=== PATIENT | male | born 1990 | race Caucasian/White ===

== ENCOUNTER → 2022-10-27 14:08 | Outpatient (REF) | payer OTHER, SELFPAY | LOC: HO.SL 14:08 | PROVIDERS: Visit Provider Nurse Practitioner Family | DX: R06.83 Snoring (principal); G47.19 Other hypersomnia | CPT/HCPCS: 95806 ==

== ENCOUNTER → 2022-12-15 20:30 | Outpatient (REF) | payer OTHER, SELFPAY | LOC: HO.SL 20:30 | PROVIDERS: Visit Provider Nurse Practitioner Family | DX: G47.33 Obstructive sleep apnea (adult) (pediatric) (principal) | CPT/HCPCS: 95811 ==

== ENCOUNTER 2023-03-15 09:09 | Outpatient (REF) | payer OTHER, SELFPAY ==
[2023-03-15 10:40] LABS: MANUAL DIFF FLAG NO
[2023-03-15 11:01] LABS: Basophils Absolute Auto 0.1 X10*3/uL (0.0-0.2); Basophils Percent Auto 1.1 % (0-2); Eosinophils Absolute Auto 0.4 X10*3/uL (0.0-0.4); Eosinophils Percent Auto 4.1 % (0-4); Hematocrit 45.8 % (42.0-52.0); Hemoglobin 15.7 g/dl (14.0-18.0); Imm Gran Abs Auto 0.01 X10*3/uL (0.00-0.03); Imm Gran Pct Auto 0.1 % (0.0-0.4); Lymphocytes Absolute Auto 3.6 X10*3/uL (1.2-4.9); Lymphocytes Percent Auto 42.5 % (20-40); Mean Corpuscular HGB Conc 34.3 g/dl (31.0-36.0); Mean Corpuscular Hemoglobin 29.5 pg (27.0-33.0); Mean Corpuscular Volume 86.1 fL (80.0-98.0); Mean Platelet Volume 10.2 fL (9.4-12.4); Monocytes Absolute Auto 0.6 X10*3/uL (0.1-1.2); Monocytes Percent Auto 6.7 % (2-11); Neutrophils Absolute Auto 3.9 x10*3/uL (2.0-8.3); Neutrophils Percent Auto 45.5 % (45-73); Platelet Count 268 X10*3/uL (160-400); Red Blood Count 5.32 X10*6/uL (4.60-5.80); Red Cell Distribution Width 12.4 % (11.0-16.0); White Blood Count 8.5 X10*3/uL (4.8-10.8)
[2023-03-15 11:32] LABS: Alanine Aminotransferase 59 U/L (0-40); Albumin Level 4.6 g/dL (3.5-5.0); Alkaline Phosphatase 67 U/L (39-117); Anion Gap 13 (12-20); Aspartate Amino Transferase 28 U/L (5-37); Bilirubin Total 0.3 mg/dL (0.0-1.0); Blood Urea Nitrogen 11 mg/dL (9-16); C Reactive Protein 0.18 mg/dL (< or = 0.50); Calcium 9.5 mg/dL (8.4-10.2); Carbon Dioxide 25 mmol/L (22-29); Chloride 106 mmol/L (96-108); Estimated Glomerular Filt Rate > 60; Glucose Random 106 mg/dL (60-115); Sodium 140 mmol/L (135-145); Total Protein 8.2 g/dL (6.5-8.0)
[2023-03-15 11:47] LABS: HBS Num1 0.04 mIU/mL (0-7.99); HBc Num1 0.12 S/CO (0.00-0.79); HBsAGNum1 0.48 S/CO (0.00-0.99); HIV AB/AG Nonreactive (Nonreactive); HIV Num 1 0.06 S/CO (0.00-0.99); Hepatitis A Antibody IgM 0.31 Index (0-0.79); Hepatitis B Core Antibody Nonreactive (Nonreactive); Hepatitis B Surface Antigen Negative (Negative); ~HepC Num1 0.05 S/CO (0.00-0.79); ~Hepatitis A Antibody IgM Nonreactive (Nonreactive); ~Hepatitis B Surface Antibody NONREACTIVE (Nonreactive); ~Hepatitis C Antibody Nonreactive (Nonreactive)
[2023-03-15 11:49] LABS: TSH reflex Free T4 1.86 uIU/mL (0.32-4.0)
[2023-03-15 14:56] LABS: Appearance Urine Clear; Color Urine Yellow; Glucose Urine UA Negative (Negative); Leukocyte Esterase Urine Negative (Negative); Nitrite Urine Negative (Negative); Specific Gravity - Urine >= 1.030 (1.005-1.025); Urine Blood Negative (Negative); Urine Ketones Negative (Negative); Urine Protein Negative (Neg-Trace)
[2023-03-16 12:58] LABS: Alpha Fetoprotein 2.3 ng/mL (<6.1)
[2023-03-16 13:33] LABS: Transglutaminase Ab IgG <1.0 U/mL; Transglutaminase IgA <1.0 U/mL
[2023-03-20 10:49] LABS: Smooth Muscle Antibody <20 U (<20)
[2023-03-21 13:34] LABS: Mitochondrial Antibodies NEGATIVE (NEGATIVE)
[2023-03-22 12:13] LABS: Anti Nuclear Antibody Screen NEGATIVE (NEGATIVE)
== END 2023-03-15 09:10 | disposition home or self-care (01) ==
LOC: HO.LAB 09:09
PROVIDERS: PCP Internal Medicine; Visit Provider Nurse Practitioner
DX: Z11.4 Encounter for screening for human immunodeficiency virus [HIV] (principal); R10.9 Unspecified abdominal pain; R19.7 Diarrhea, unspecified; Z91.09 Other allergy status, other than to drugs and biological substances; R21 Rash and other nonspecific skin eruption; R79.89 Other specified abnormal findings of blood chemistry; Z80.0 Family history of malignant neoplasm of digestive organs; R74.01 Elevation of levels of liver transaminase levels
CPT/HCPCS: 36415; 80053; 81003; 82105; 84443; 85025; 86003; 86015; 86038; 86140; 86255; 86256; 86364; 86704; 86706; 86709; 86803; 87340; 87389

== ENCOUNTER 2023-03-15 09:09 | Outpatient (AMB) | payer OTHER, SELFPAY ==
[2023-03-15 09:13] VITALS: BP 134/63; PULSE 92; BMI 38.0
--- NOTE | 2023-03-15 09:13 | A.OFFVIS_ITS ---
Intake Vital Signs 03/15/23 09:13 Height 5 ft 4 in Weight 221 lb 5.506 oz BMI 38.0 BP 134/63 Blood Pressure Location Rt brachial Position Sitting Pulse 92 Intake Visit Reasons: Elevated LFTs Intake Note: Patient presents to in office visit today as a new patient for elevated LFTs. CC: He reports he is out of his work on FMLA due to symptoms he is having. Patient reports extreme RUQ abdominal pain, distention, diarrhea within 10-20 minutes after eating. He also c/o nausea, vomiting. Onset of symptoms 3 months ago. [employer] Leadperson Required: No Allergies No Known Allergies Allergy (Verified 03/15/23 09:17) HPI Elevated LFTs HPI Details 33-year-old male here for initial evalua tion of elevated LFTs. He is referred by [facility]. PMX KHADAR - having trouble getting CPAP Anxiety Asthma Chronic diarrhea Transaminitis LEFT INGUINAL HERNIA * SURGICAL HISTORY Circumcision * ALLERGIES: erythromycin drops * LABS SUPPLIED BY PCP: 08/2021 unremarkable CBC, AST/ALT /59 with a total bili is 0.3 and a normal alk-phos, unremarkable renal panel. CT ABDOMEN AND PELVIS 12/27/2022-ray S radiology LIVER GALLBLADDER AND BILIARY TREE: LIVER IS PROMINENT IN SIZE of overall decreased density with focal fatty sparing at the gallbladder fossa. No focal hepatic lesion or biliary duct dilation is present. The gallbladder is unremarkable with no evidence of radiopaque gallstone gallbladder wall thickening or obvious pericholecystic inflammatory changes ABDOMINAL WALL: Very small fat filled inguinal hernia left GI TRACT: Small hiatal hernia. Well distended and unremarkable stomach. Nonobstructive bowel pattern. Unremarkable terminal ileum and appendix. Proximal to mid transverse colonic wall thickening although under distended. Descending colon is decompressed. IMPRESSION Mild thickening proximal to the mid transverse colon questionable infectious versus inflammatory. No significant pericolonic stranding. Nonspecific mesenteric lymph nodes. Enlarged fatty liver. TODAYS VISIT He says he is here or abd pain on the left side and diarrhea. He has been having 4 mos of right sided abd pain and bloating. He would stretch in the am and it would feel like something popped out of place, it feels like a tight pulled muscle constantly now. It is worse with any contact. Eating does not increase the pain. The worst flairs of pain in 7/10 and at times 10/10 with spasm. At times it feels like there is a whole in side and my intestine is trying to squeeze out. Or like someone is punching me form the inside. He is having post prandial diarrhea. He always used the BR multiple times a day WITH soft to formed stools, but not now. . He has had occasional vomiting, he is unsure what triggers it, it seems to come out of nowhere and at times even wakes him from his sleep. He has a paternal uncle who is gluten in tolerant, his mother had lactose intolerant. His mother had colon polyps. His paternal grandfather of stomach and colon cance.r Mother had polyps in her 40's and grandfather CRC in 50's No known liver disease. He has lost weight since this started a out 20 lbs. He is unsure why, he is stlil eating well. He is out on medical leave may need this extended. Ordering EGD/colonoscopy, small bowel f/t, HIDA, labs. [facility] Medical History (Updated 03/30/23 @ 09:56 by Viki Butt RN) Anxiety Sleep apnea Asthma Back pain Chronic diarrhea Surgical History H/O circumcision Family History Mother Hx of thyroid cancer Father Anxiety Family/Other Diabetes mellitus Family/Other Colon cancer Family/Other Asthma Family/Other COPD (chronic obstructive pulmonary disease) Glaucoma Social History Alcohol intake: current Alcohol intake frequency: holidays/special occasions only Patient Tobacco Use Status: Never used Tobacco Review of Systems Const Denies fatigue, Denies fever(s), Denies night sweats, Denies poor appetite and Denies weight loss ENT Reports Normal hearing present, Denies dental pain, Denies dysphagia, Denies hearing loss, Denies mouth pain, Denies odynophagia, Denies throat swelling, Denies tongue swelling and Reports other (Dentition adequate) Card Reports no additional complaints Resp Reports no additional complaints GI Reports abdominal pain, Denies melena, Denies bloating, Denies hematochezia, Denies constipation, Denies GI cramping, Denies dysphagia, Denies excessive flatus, Denies early satiety, Denies heartburn, Reports diarrhea, Reports nausea, Denies odynophagia, Reports vomiting and Denies hematemesis Skin/Breast Denies pruritus, Denies lesions, Denies rash and Denies jaundice Neuro Reports Normal hearing present and Denies Abnormal speech present Endo Denies fatigue Aller/Immun Denies throat swelling and Denies tongue swelling Physical Exam Vital Signs: Last Vital Signs Pulse 92 03/15/23 09:13 BP 134/63 03/15/23 09:13 BMI result Body Mass Index 38.0 Const General: cooperative, no acute distress, well developed and well groomed Nutritional Appearance: well nourished and obese morbidly obese Orientation/consciousness: oriented to person, oriented to place and oriented to time Limitations: No language barrier HEENT Head: Yes normocephalic and Yes atraumatic Eyes General: appearance normal, both eyes and all related structures Pupils: Equal, round and reactive pupils present Neck Neck: Yes normal visual inspection and Yes no lymphadenopathy Thyroid: Thyroid normal Resp Effort & Inspection: normal respiratory effort and able to speak in complete sentences Auscultation: clear to auscultation bilaterally Cardio Rate: regular rate Rhythm: regular rhythm Heart sounds: Normal, physiologic split S2 sound present Peripheral pulses: radial pulses present and posterior tibial pulses present GI Inspection: No distended, No Abdominal panniculus present and Yes obesity Palpation (GI): Soft to palpation, nontender, no guarding, not rigid and No hepatosplenomegaly present Percussion: Yes normal to percussion Auscultation: normal bowel sounds Rectal Exam - Male: Yes deferred Skin Other: rash on buttock, upper thighs and stomach, discrets erythrma no exudate, scaly. Worse itching at night. General skin exam: turgor normal, skin not dry, no jaundice, No spider nevi and no striae Rashes: no rashes Nails: normal Neuro General: oriented to person, oriented to place and oriented to time Cranial nerves: Yes Equal, round and reactive pupils present and Yes Normal hearing present Speech: No Abnormal speech present Extrem General: Yes normal to inspection, No clubbing, No cyanosis and No edema Psych Appearance: grossly normal and well kempt Mental Status: mental status grossly normal Speech and movement: Normal speech and movement present Affect: normal affect Attitude: cooperative Thought process: Normal thought process present and not confabulating Thought content: Normal thought content present Insight: Limited insight present (Psych) Judgement: Limited judgement present (Psych) Results Reviewed Results Reviewed: LABS SUPPLIED BY PCP: 08/2021 unremarkable CBC, AST/ALT 23/59 with a total bili is 0.3 and a normal alk-phos, unremarkable renal panel. CT ABDOMEN AND PELVIS 12/27/2022-ray S radiology LIVER GALLBLADDER AND BILIARY TREE: LIVER IS PROMINENT IN SIZE of overall decreased density with focal fatty sparing at the gallbladder fossa. No focal hepatic lesion or biliary duct dilation is present. The gallbladder is unremarkable with no evidence of radiopaque gallstone gallbladder wall thickening or obvious pericholecystic inflammatory changes ABDOMINAL WALL: Very small fat filled inguinal hernia left GI TRACT: Small hiatal hernia. Well distended and unremarkable stomach. Nonobstructive bowel pattern. Unremarkable terminal ileum and appendix. Proximal to mid transverse colonic wall thickening although under distended. Descending colon is decompressed. IMPRESSION Mild thickening proximal to the mid transverse colon questionable infectious versus inflammatory. No significant pericolonic stranding. Nonspecific mesenteric lymph nodes. Enlarged fatty liver. Assessment & Plan Assessment & Plan (1) Acute diarrhea: Code(s): R19.7 - Diarrhea, unspecified Plan: He says he is here or abd pain on the left side and diarrhea. He has been having 4 mos of right sided abd pain and bloating. He would stretch in the am and it would feel like something popped out of place, it feels like a tight pulled muscle constantly now. It is worse with any contact. Eating does not increase the pain. The worst flairs of pain in 7/10 and at times 10/10 with spasm. At times it feels like there is a whole in side and my intestine is trying to squeeze out. Or like someone is punching me form the inside. He is having post prandial diarrhea. He always used the BR multiple times a day WITH soft to formed stools, but not now. . He has had occasional vomiting, he is unsure what triggers it, it seems to come out of nowhere and at times even wakes him from his sleep. He has a paternal uncle who is gluten in tolerant, his mother had lactose intolerant. His mother had colon polyps. His paternal grandfather of stomach and colon cance.r Mother had polyps in her 40's and grandfather CRC in 50's No known liver disease. He has lost weight since this started a out 20 lbs. He is unsure why, he is stlil eating well. He is out on medical leave may need this extended. Ordering EGD/colonoscopy, small bowel f/t, HIDA, labs. ROV in 2 weeks (2) Right sided abdominal pain: Code(s): R10.9 - Unspecified abdominal pain (3) Family history of malignant neoplasm of colon in relative diagnosed when older than 50 years of age: Code(s): Z80.0 - Family history of malignant neoplasm of digestive organs (4) Back pain: Code(s): M54.9 - Dorsalgia, unspecified (5) Rash: Code(s): R21 - Rash and other nonspecific skin eruption Orders: Orders Transglutaminase IgA 03/15/23 R19.7 - Diarrhea, unspecified, R10.9 - Unspecified abdominal pain Transglutaminase Ab IgG 03/15/23 R19.7 - Diarrhea, unspecified, R10.9 - Unspecified abdominal pain Rast Allergen 03/15/23 R19.7 - Diarrhea, unspecified, R10.9 - Unspecified abdominal pain Pancreatic Elastase-1 03/15/23 R19.7 - Diarrhea, unspecified, R10.9 - Unspecified abdominal pain GI Panel 03/15/23 R19.7 - Diarrhea, unspecified, R10.9 - Unspecified abdominal pain Alpha Fetoprotein 03/15/23 R19.7 - Diarrhea, unspecified, R10.9 - Unspecified abdominal pain Hepatitis A,B,C Profile 03/15/23 R19.7 - Diarrhea, unspecified, R10.9 - Unspecified abdominal pain HIV Ab/Ag 03/15/23 R19.7 - Diarrhea, unspecified, R10.9 - Unspecified abdominal pain Calprotectin, Fecal 03/15/23 R19.7 - Diarrhea, unspecified, R10.9 - Unspecified abdominal pain NM hepatobiliary w pharm 03/15/23 R19.7 - Diarrhea, unspecified, R10.9 - Unspecified abdominal pain FL upper GI small bowel 03/15/23 R19.7 - Diarrhea, unspecified, R10.9 - Unspecified abdominal pain XR lumbar spine 2-3V 03/15/23 M54.9 - Dorsalgia, unspecified Complete Blood Count Auto Diff 03/15/23 R19.7 - Diarrhea, unspecified, R10.9 - Unspecified abdominal pain Comprehensive Met. Panel 03/15/23 R19.7 - Diarrhea, unspecified, R10.9 - Unspecified abdominal pain C Reactive Protein 03/15/23 R19.7 - Diarrhea, unspecified, R10.9 - Unspecified abdominal pain TAYLOR Reflex Titer and Pattern 03/15/23 R19.7 - Diarrhea, unspecified, R10.9 - Unspecified abdominal pain Mitochondrial Antibody 03/15/23 R19.7 - Diarrhea, unspecified, R10.9 - Unspecified abdominal pain Smooth Muscle Antibody 03/15/23 R19.7 - Diarrhea, unspecified, R10.9 - Unspecified abdominal pain TSH reflex Free T4 03/15/23 R19.7 - Diarrhea, unspecified, R10.9 - Unspecified abdominal pain UA CC w/rflx Micro + Cult 03/15/23 R19.7 - Diarrhea, unspecified, R10.9 - Unspecified abdominal pain CDiff Gene PCR 03/15/23 R19.7 - Diarrhea, unspecified, R10.9 - Unspecified abdominal pain EGD/[place] [facility]bo - GI Use Only 03/15/23 R10.9 - Unspecified abdominal pain, Z80.0 - Family history of malignant neoplasm of digestive organs XR thoracic spine 2V 03/15/23 M54.9 - Dorsalgia, unspecified Referrals Dermatology Referral R21 - Rash and other nonspecific skin eruption Coding Level of Care Code New Pt Level 3 (97908) Diagnoses Acute diarrhea R19.7 Right sided abdominal pain R10.9 Family history of malignant neoplasm of colon in relative diagnosed when older than 50 years of age Z80.0 Back pain M54.9 Rash R21
== END 2023-03-15 10:29 | disposition home or self-care (01) ==
PROVIDERS: Visit Provider Nurse Practitioner
DX: R19.7 Diarrhea, unspecified (principal); R10.9 Unspecified abdominal pain; Z80.0 Family history of malignant neoplasm of digestive organs; M54.9 Dorsalgia, unspecified; R21 Rash and other nonspecific skin eruption
CPT/HCPCS: 99203

== ENCOUNTER 2023-04-04 11:30 | Day surgery (SDC) | payer OTHER, SELFPAY ==
[2023-03-30 10:00] VITALS: BMI 37.9
--- NOTE | 2023-04-03 09:33 | P.CONAN_ITS ---
Documented by User: Gianna Sol NP 04/03/23 09:33 HPI - Anesthesia Eval Consult details Narrative: 33yo M for Upper Endoscopy and Colonoscopy [facility] Active Problems Active Problems: All Active Problems (Updated 03/30/23 @ 09:56 by Viki Butt RN) Rash (Acute) Back pain (Acute) Family history of malignant neoplasm of colon in relative diagnosed when older than 50 years of age (Acute) Right sided abdominal pain (Acute) Acute diarrhea (Acute) Anxiety (Acute) Asthma (Acute) KHADAR (obstructive sleep apnea) (Acute) Witnessed episode of apnea (Acute) Excessive daytime sleepiness (Acute) Loud snoring (Acute) Past Medical History Medical History (Updated 03/30/23 @ 09:56 by Viki Butt RN) Anxiety Sleep apnea Asthma Back pain Chronic diarrhea Family History Family History Mother Hx of thyroid cancer Father Anxiety Family/Other Diabetes mellitus Family/Other Colon cancer Family/Other Asthma Family/Other COPD (chronic obstructive pulmonary disease) Glaucoma Surgical History Surgical History H/O circumcision Social History Social History Alcohol intake: current Alcohol intake frequency: holidays/special occasions only Patient Tobacco Use Status: Never used Tobacco Are you DNR?: No Advance Directives: No Advance Directives Information Provided: Yes Meds Allergies Allergy/AdvReac Type Severity Reaction Status Date / Time No Known Allergies Allergy Verified 03/15/23 09:17 Home Medications Medication Instructions Recorded Confirmed Last Taken Type albuterol sulfate 2.5 mg/3 mL 2.5 mg inhalation Q6H 05/24/22 03/30/23 Unknown History (0.083 %) solution for nebulization albuterol sulfate 90 mcg/actuation 2 puff inhalation Q4-6H PRN 05/24/22 03/30/23 Unknown History aerosol inhaler (ProAir HFA) Shortness Of Breath Or Wheezing acetaminophen 500 mg tablet 500 mg PO Q6H PRN Pain 03/15/23 03/30/23 Unknown History (Tylenol Extra Strength) ibuprofen 800 mg tablet 800 mg PO Q8H 03/15/23 03/30/23 Unknown History Exam Exam Date and Time: April 03, 2023 0933 Height,Weight and Vital Signs: Height 5 ft 4 in Weight 100.244 kg Pertinent Lab Results Pertinent Lab Results: Laboratory Tests 03/15/23 10:39 WBC 8.5 Hgb 15.7 Hct 45.8 Plt Count 268 Sodium 140 Potassium 4.0 Chloride 106 Carbon Dioxide 25 BUN 11 Creatinine 0.85 Assessment and Plan Assessment Anesthesia Assessment: Chart Reviewed Documented by User: Evan Perez MD 04/04/23 13:17 [facility] Past Medical History Medical History (Updated 03/30/23 @ 09:56 by Viki Butt RN) Anxiety Sleep apnea Asthma Back pain Chronic diarrhea Family History Family History Mother Hx of thyroid cancer Father Anxiety Family/Other Diabetes mellitus Family/Other Colon cancer Family/Other Asthma Family/Other COPD (chronic obstructive pulmonary disease) Glaucoma Pertinent family history: da Family history of problems with anesthesia: No Surgical History Surgical History H/O circumcision History of Problems with Anesthesia: No Social History Social History Alcohol intake: current Alcohol intake frequency: holidays/special occasions only Patient Tobacco Use Status: Never used Tobacco Are you DNR?: No Advance Directives: No Advance Directives Information Provided: Yes Meds Allergies Allergy/AdvReac Type Severity Reaction Status Date / Time No Known Allergies Allergy Verified 03/15/23 09:17 Home Medications Medication Instructions Recorded Confirmed Last Taken Type albuterol sulfate 2.5 mg/3 mL 2.5 mg inhalation Q6H 05/24/22 03/30/23 Unknown History (0.083 %) solution for nebulization albuterol sulfate 90 mcg/actuation 2 puff inhalation Q4-6H PRN 05/24/22 03/30/23 Unknown History aerosol inhaler (ProAir HFA) Shortness Of Breath Or Wheezing acetaminophen 500 mg tablet 500 mg PO Q6H PRN Pain 03/15/23 03/30/23 Unknown History (Tylenol Extra Strength) ibuprofen 800 mg tablet 800 mg PO Q8H 03/15/23 03/30/23 Unknown History Exam Airway Mallampati Class: III TM Dist: <=3cm Neck ROM: Full Loose/Missing/Broken Teeth: No Heart: ok Lungs: ok Assessment and Plan Assessment Anesthesia Assessment: Anesthesia Plan Discussed Final Anesthetic Review Family History of Problems with Anesthesia: No History of Problems with Anesthesia: No NPO: Yes ASA Class: III Final Preanesthetic Review: No Changes in Pt Med Stat, Meds/Allgs Chart Reviewed, Consent Obtained/Reviewed and Anes Risks/Benef Reviewed Patient Risk: Intermediate Procedure Risk: Intermediate Anesthetic Plan Anesthetic Plan: MAC: and Agree w/ Assess. and Plan Disposition: Standard PACU
[2023-04-04 11:44] VITALS: BP 120/70; PULSE 92; RESP 20; TEMP 36.1; O2SAT 97
[2023-04-04] MEDS: Lactated Ringers 1,000 ML 100 ML IVCONT (12:03)
--- NOTE | 2023-04-04 12:15 | MHC.SHP ---
Pre-Procedural Eval Section A Date of Service: 04/04/23 The History & Physical has been completed within 30 days and I have reviewed it.: Yes Section B Chief Complaint: Chronic diarrhea, abnormal CT scan Allergies: Allergies Allergy/AdvReac Type Severity Reaction Status Date / Time No Known Allergies Allergy Verified 03/15/23 09:17 Plan Diagnosis/Plan: Unchanged I have reviewed the history and physical and performed a pertinent physical examination on my patient. No changes have occurred unless specified. Time Spent With Patient Time: Total time managing care of this patient today ____ minutes.
[2023-04-04 14:03] VITALS: BP 104/60; PULSE 83; RESP 18; TEMP 36.8; O2SAT 97
[2023-04-04 14:18] VITALS: BP 129/77; PULSE 80; RESP 18; O2SAT 97
--- NOTE | 2023-04-04 14:20 | P.OP_ITS ---
Operative Note Operative Note Date of Service: 04/04/23 Narrative: Procedure:?Esophagogastroduodenoscopy and colonoscopy Endoscopist:?Marichuy Novoa MD Indication:?chronic diarrhea, abnormal CT scan Anesthesia Provider:?Evan Perez MD Anesthesia Type:?MAC Instrument:?Olympus PCF-H190L, [id number] EGD Procedure:?? The procedure, indications, preparation and potential complications were reviewed with the patient, who indicated understanding and gave written informed consent to proceed. A physical exam was performed. The endoscope was introduced through the bite block, and advanced to the second part of duodenum. The mucosa was carefully examined on slow withdrawal of the endoscope. There were no immediate complications. Patient tolerated the procedure well. EGD Findings:? * Esophagus:? Normal mucosa noted in the entire esophagus. The Z-line is at 36 cm. * Stomach:? Normal gastric mucosa. Retroflexion performed in the fundus. Random cold forceps gastric biopsies were taken to rule out H pylori. * Duodenum:? Normal duodenal mucosa to the extent visualised. Cold forceps biopsies were taken from duodenal bulb and 2nd portion of duodenum to rule out celiac sprue. Colonoscopy Procedure:? The patient was then turned for the colonoscopu. A digital rectal exam was performed which was normal.? A distal attachment cap was affixed to the tip of the scope and the colonoscope was then inserted through the anus and advanced through the colon to the cecum at 75 cm and terminal ileum. Appendiceal orifice and ileocecal valve were identified. Mucosa was carefully examined under high definition white light as the instrument was slowly withdrawn in a retrograde panoramic fashion. Retroflexion was performed in rectum. The procedure was not difficult. There were no immediate obvious complications. The quality of the prep was BBPS: 2+3+2 = adequate Withdrawal time: 13 minutes Limitations: No limitation. Colonoscopy Findings: Mucosa: Normal mucosa to cecum and terminal ileum. Cold forceps biopsies were taken from the right and left side of the colon to rule out microscopic colitis. Protruding lesions: * Medium internal hemorrhoids without stigmata of recent bleeding. Impression: 1. Normal esophagus 2. Normal gastric mucosa (biopsy) 3. Normal duodenum (biopsy) 4. Normal colon and terminal ileum mucosa (biopsy) 5. Internal hemorrhoids Recommendations:?? * Await pathology results. * Resume asymptomatic CRC screening at 47 y.o.
[2023-04-04 14:33] VITALS: BP 111/78; PULSE 67; RESP 16; O2SAT 97
[2023-04-04 14:48] VITALS: BP 115/64; PULSE 74; RESP 16; TEMP 36.6; O2SAT 97
[2023-04-04 15:20] VITALS: BP 120/70; PULSE 83; RESP 16; TEMP 36.6; O2SAT 97
== END 2023-04-04 16:00 | disposition home or self-care (01) ==
PROVIDERS: PCP Internal Medicine; Visit Provider Internal Medicine
PROC: (CPT 45380; principal; 2023-04-04 13:00)
DX: K52.9 Noninfective gastroenteritis and colitis, unspecified (principal); Z80.0 Family history of malignant neoplasm of digestive organs; K64.8 Other hemorrhoids; R10.9 Unspecified abdominal pain; J45.909 Unspecified asthma, uncomplicated; F41.1 Generalized anxiety disorder; G47.33 Obstructive sleep apnea (adult) (pediatric); K29.50 Unspecified chronic gastritis without bleeding; Z79.1 Long term (current) use of non-steroidal anti-inflammatories (NSAID); Z79.899 Other long term (current) drug therapy
CPT/HCPCS: 45380; 43239; 88305; 88342; J3010

== ENCOUNTER → 2023-04-14 11:01 | Outpatient (REF) | payer OTHER, SELFPAY ==
--- NOTE | ~2023-04-14 | NM_ITS ---
EXAMINATION: BILIARY TRACT IMAGING STUDY WITH CCK CLINICAL INFORMATION: Right-sided abdominal pain and diarrhea. COMPARISON: CT of the abdomen and pelvis done on 12/27/2022.. TECHNIQUE: Serial gamma scintillation camera images were obtained over the abdomen for a total observation period of 60 minutes following the intravenous administration of 5 mCi Tc-99m mebrofenin. The radiotracer was injected through right antecubital superficial vein without complications. FINDINGS: There is good concentration of activity in the liver by 5 minutes post injection. Biliary activity is visualized by 5 minutes. The gallbladder is well visualized by 15 minutes. Small bowel is well visualized by 15 minutes. At 60 minutes post radiopharmaceutical injection, a 30-minute infusion of 20 micrograms Sincalide was then begun and an additional 30 minutes of images were obtained. There is good emptying of the gallbladder. By the end of the study there is good clearance of activity from the liver and visualization of diffuse small bowel activity. The calculated gallbladder ejection fraction is 86% (normal gallbladder ejection fraction is greater than 35%). NM/NM hepatobiliary w pharm IMPRESSION: Visualization of the gallbladder is evidence of a patent cystic duct and strong evidence against the diagnosis of acute cholecystitis. The common bile duct is patent. Gallbladder emptying and ejection fraction are normal. Liver function appears normal.
== END ==
LOC: HO.NUCMED 11:01
PROVIDERS: PCP Internal Medicine; Visit Provider Nurse Practitioner
DX: R10.9 Unspecified abdominal pain (principal); R19.7 Diarrhea, unspecified
CPT/HCPCS: 78227; A9537; J2805

== ENCOUNTER 2023-04-18 16:10 | Outpatient (AMB) | payer OTHER, SELFPAY ==
--- NOTE | 2023-04-18 16:13 | A.OFFVIS_ITS ---
Intake Vital Signs 04/18/23 16:25 Height 5 ft 4 in Weight 209 lb 14.081 oz BMI 36.0 BP 131/68 Blood Pressure Location Rt brachial Position Sitting Pulse 95 Intake Visit Reasons: s/p DBL Intake Note: Patient presents to in office visit today in follow up of EGD/colonoscopy. CC: Patient reports he continues to have RUQ abdominal pain, distention, diarrhea within 10-20 minutes after eating. He also c/o nausea, and vomiting. Patient reports that his father about 3 weeks ago. He also reports seeing blood in his urine yesterday or the day before and having HR readings of about 130. Corporate Controller Required: No Accompanied by: Uncle Allergies No Known Allergies Allergy (Verified 04/18/23 16:29) HPI s/p DBL HPI Details Assessment & Plan (1) Acute diarrhea: Code(s): R19.7 - Diarrhea, unspecified (2) Right sided abdominal pain: Code(s): R10.9 - Unspecified abdominal pain (3) Family history of malignant neoplasm of colon in relative diagnosed when older than 50 years of age: Code(s): Z80.0 - Family history of malignant neoplasm of digestive organs (4) Back pain: Code(s): M54.9 - Dorsalgia, unspecified (5) Rash: Code(s): R21 - Rash and other nonspecific skin eruption Orders: Orders Calprotectin, Feca l Today R10.9 - Unspecifie d abdominal pain, R19.7 - Diarrhea, unspecified Pancreatic Elastas e-1 Today R10.9 - Unspecifie d abdominal pain, R19.7 - Diarrhea, unspecified Alpha Fetoprotein Today R10.9 - Unspecifie d abdominal pain, R19.7 - Diarrhea, unspecified Comprehensive Met. Panel Today R10.9 - Unspecifie d abdominal pain, R19.7 - Diarrhea, unspecified C Reactive Protein Today R10.9 - Unspecifie d abdominal pain, R19.7 - Diarrhea, unspecified Rast Allergen Today R10.9 - Unspecifie d abdominal pain, R19.7 - Diarrhea, unspecified TSH reflex Free T4 Today R10.9 - Unspecifie d abdominal pain, R19.7 - Diarrhea, unspecified FL upper GI small bowel Today R10.9 - Unspecifie d abdominal pain, R19.7 - Diarrhea, unspecified Complete Blood Cou nt Auto Diff Today R10.9 - Unspecifie d abdominal pain, R19.7 - Diarrhea, unspecified TAYLOR Reflex Titer a nd Pattern Today R10.9 - Unspecifie d abdominal pain, R19.7 - Diarrhea, unspecified Mitochondrial Anti body Today R10.9 - Unspecifie d abdominal pain, R19.7 - Diarrhea, unspecified Smooth Muscle Anti body Today R10.9 - Unspecifie d abdominal pain, R19.7 - Diarrhea, unspecified Transglutaminase I gA Today R10.9 - Unspecifie d abdominal pain, R19.7 - Diarrhea, unspecified Transglutaminase A b IgG Today R10.9 - Unspecifie d abdominal pain, R19.7 - Diarrhea, unspecified NM hepatobiliary w pharm Today R10.9 - Unspecifie d abdominal pain, R19.7 - Diarrhea, unspecified CDiff Gene PCR Today R10.9 - Unspecifie d abdominal pain, R19.7 - Diarrhea, unspecified GI Panel Today R10.9 - Unspecifie d abdominal pain, R19.7 - Diarrhea, unspecified Hepatitis A,B,C Pr ofile Today R10.9 - Unspecifie d abdominal pain, R19.7 - Diarrhea, unspecified HIV Ab/Ag Today R10.9 - Unspecifie d abdominal pain, R19.7 - Diarrhea, unspecified UA CC w/rflx Micro + Cult Today R10.9 - Unspecifie d abdominal pain, R19.7 - Diarrhea, unspecified EGD/[place] Combo - G I Use Only Today R10.9 - Unspecifie d abdominal pain, Z80.0 - Family his tory of malignant neoplasm of digest errol organs XR lumbar spine 2- 3V Today M54.9 - Dorsalgia, unspecified XR thoracic spine 2V Today M54.9 - Dorsalgia, unspecified Referrals Dermatology Referr al R21 - Rash and oth er nonspecific ski n eruption LABS:. Laboratory Tests 03/15/23 10:39 WBC 8.5 Hgb 15.7 Hct 45.8 Plt Count 268 Estimated GFR > 60 Total Bilirubin 0.3 AST 28 ALT 59 H Alkaline Phosphata se 67 C-Reactive Protein 0.18 Alpha Fetoprotein 2.3 TSH 1.86 TAYLOR Screen NEGATIVE Anti-Mitochondrial Ab NEGATIVE Anti-Smooth Muscle Ab <20 Tiss Transglutamin IgG <1.0 Tiss Transglutamin IgA <1.0 Hepatitis A IgM Ab Nonreactive Hep Bs Antigen Negative Hep Bs Antibody NONREACTIVE Hep B Core Total A b Nonreactive Hepatitis C Ab (EI A) Nonreactive HIV 1&2 Ab/P24 Ag 4thGn Nonreactive The RAST PANEL SHOWED NO SIGNIFICANT FOOD ALLERGIES GI PANEL AND PANCREATIC ELASTASE NOT RETURNED. 03/15/23-[address]: VICKIE ARIZA DO ORDERED: Ua Clean Catch QUERIES: Sourc e: Urine, Clean Ca tch Test Result Flag Refere nce Si te Ur Color Yellow Ur Appear C lear P H 6. 0 5.0-9.0 Ur Glu Negati ve Negative mg/d L Urine Blood Negative Negative Spec Gr av[place] Ur >= 1.030 H 1.005-1.025 Urine Pro tein Negative N eg-Trace mg/dL Urine [place] es Negative Neg ative mg/dL Ur Nitrite Negative Negat errol Ur Frandy Esterase Negative Negativ e HIDA SCAN 04/14/23 IMPRESSION: Visualization of the gallbladder is evidence of a patent cystic duct and strong evidence against the diagnosis of acute cholecystitis. The common bile duct is patent. Gallbladder emptying and ejection fraction are normal. Liver function appears normal. EGD/COLONOSCOPY EGD Findings:? * Esophagus:? Normal mucosa noted in the entire esophagus. The Z-line is at 36 cm. * Stomach:? Normal gastric mucosa. Retroflexion performed in the fundus. Random cold forceps gastric biopsies were taken to rule out H pylori. * Duodenum:? Normal duodenal mucosa to the extent visualised. Cold forceps biopsies were taken from duodenal bulb and 2nd portion of duodenum to rule out celiac sprue. * Colonoscopy Findings: Mucosa: Normal mucosa to cecum and terminal ileum. Cold forceps biopsies were taken from the right and left side of the colon to rule out microscopic colitis. Protruding lesions: * Medium internal hemorrhoids without stigmata of recent bleeding. Impression: 1. Normal esophagus 2. Normal gastric mucosa (biopsy) 3. Normal duodenum (biopsy) 4. Normal colon and terminal ileum mucos a (biopsy) 5. Internal hemorrhoids Recommendations:?? * Await pathology results. * Resume asymptomatic CRC screening at 47 y.o. BIOPSY Received: 04/04/23 Diagnosis A. Duodenum, biopsy: Duodenal mucosa within normal limits. B. Stomach, random, biopsy: Antral-type mucosa with mild chronic inactive inflammation; no Helicobacter organisms seen. C. Colon, right, biopsy: Colonic mucosa within normal limits; negative for microscopic colitis. D. Colon, left, biopsy: Colonic mucosa within normal limits; negative for microscopic colitis. UGI WITH SMALL BOWEL FOLLOW THROUGH Scheduled for 05/26 X-RAY OF LUMBAR THORACIC SPINE GI panel, pancreatic a last taste and stool calprotectin still have not been completed TODAY'S VISIT He is here with a male friend who is supportive.. His father just , and he has been losing weight, 11 lbs since 03/30. He recently saw some blood in his urine. He still has post prandial diarrhea. It is still watery. He denies any abdominal pain or nausea vomiting. HIDA scan does not show any problems with the gallbladder. He has had a very difficult past 8 weeks. His grandfather , and that his father was suddenly found to ceased at home, and his girlfriend's father also . With this he developed sudden onset about a week ago of upper respiratory symptoms and a cough with severe shortness of breath. He was seen by his doctor's office and they said they thought it was a pneumonia. However they did not do any blood work or get a chest x-ray. He had a course of amoxicillin which she has completed without any relief. He could not tolerate the prednisone they prescribed as it made him to angry and anxious. He does have an albuterol updraft machine at home he is relying on. He has also noted that he is extremely tachycardic using a home pulse ox his pulses never below 100 and frequently is as high as 130. This is quite concerning as well. I am going to get an EKG as well as an a.m. cortisol to explore the symptoms. I think I am going to get a chest x-ray, an a.m. cortisol level, and I encouraged him to continue his workup by getting a stool sample so we can make sure there is not infection of the stool draining his system. I also want to get an EKG to see if this any severe abnormality there particularly given what just occurred with his father. I am sending a cough medication and Mucinex along with a course of doxycycline to his pharmacy as this will well cover both sinusitis and pneumonia and has mild anti-inflammatory properties as well. His lungs are extremely tight knee even sounds like he might have a left middle lobe infiltrate. Depending on the results of the x-rays he may benefit from a referral to pulmonology and or an office worker. We all the the and that he has fatty liver, and so far there is no allergies microscopic colitis or signs of inflammatory bowel disease causing his diarrhea. However we still need to get a stool sample to if there is an infection or potential elevation of the fecal calprotectin. He says he will do this tomorrow. He will keep his May 02 appointment come back and see me in go over his results and see how he is progressing. [facility] Medical History (Updated 04/18/23 @ 16:59 by LARRY Bentley) Anxiety Sleep apnea Asthma Back pain Chronic diarrhea Surgical History H/O circumcision Family History Mother Hx of thyroid cancer Father Anxiety Family/Other Diabetes mellitus Family/Other Colon cancer Family/Other Asthma Family/Other COPD (chronic obstructive pulmonary disease) Glaucoma Social History Alcohol intake: current Alcohol intake frequency: holidays/special occasions only Patient Tobacco Use Status: Never used Tobacco Review of Systems Const Reports fatigue, Denies fever(s), Denies night sweats, Denies poor appetite and Reports weight loss ENT Reports Normal hearing present, Denies dental pain, Denies dysphagia, Denies hearing loss, Reports hoarseness, Denies mouth pain, Reports nasal congestion, Reports nasal discharge, Denies odynophagia, Reports post nasal drip, Reports sinus pressure, Denies throat swelling, Denies tongue swelling and Reports other (Dentition adequate) Card Reports chest pain and Reports dyspnea Resp Reports chest congestion, Reports cough, Reports dyspnea and Reports wheezing GI Denies abdominal pain, Denies melena, Denies bloating, Denies hematochezia, Denies constipation, Denies GI cramping, Denies dysphagia, Denies excessive flatus, Denies early satiety, Denies heartburn, Reports diarrhea, Denies nausea, Denies odynophagia, Denies vomiting and Denies hematemesis Reports hematuria Musc Reports myalgias Skin/Breast Denies pruritus, Denies lesions, Denies rash and Denies jaundice Neuro Reports Normal hearing present and Denies Abnormal speech present Psych Reports abnormal sleep pattern, Reports anxiety and Reports depression Endo Reports fatigue Aller/Immun Denies throat swelling, Denies tongue swelling and Reports wheezing Physical Exam Const General: cooperative, well developed, in distress moderate, tired appearing and well groomed Nutritional Appearance: well nourished and obese Orientation/consciousness: oriented to person, oriented to place and oriented to time Limitations: No language barrier HEENT Head: Yes normocephalic and Yes atraumatic Eyes General: appearance normal, both eyes and all related structures Pupils: Equal, round and reactive pupils present Neck Neck: Yes normal visual inspection and Yes no lymphadenopathy Thyroid: Thyroid normal Resp Effort & Inspection: able to speak in complete sentences, audible wheezes and Actively coughing Quality: actively coughing Auscultation: rhonchi left lower and wheezes expiratory wheezes, inspiratory wheezes and throughout Cardio Rate: regular rate Rhythm: regular rhythm Heart sounds: Normal, physiologic split S2 sound present Peripheral pulses: radial pulses present and posterior tibial pulses present GI Inspection: No distended, No Abdominal panniculus present and Yes obesity Palpation (GI): Soft to palpation, Tenderness to palpation present (GI) in the RUQ, no guarding, not rigid and No hepatosplenomegaly present Percussion: Yes normal to percussion Auscultation: Hyperactive bowel sounds present Rectal Exam - Male: Yes deferred Skin General skin exam: no rashes or lesions noted, turgor normal, skin not dry, no jaundice, No spider nevi and no striae Rashes: no rashes Nails: normal Neuro General: oriented to person, oriented to place and oriented to time Cranial nerves: Yes Equal, round and reactive pupils present and Yes Normal hearing present Speech: No Abnormal speech present Extrem General: Yes normal to inspection, No clubbing, No cyanosis and No edema Psych Appearance: grossly normal and well kempt Mental Status: mental status grossly normal Speech and movement: Normal speech and movement present Affect: normal affect Attitude: cooperative Thought process: Normal thought process present and not confabulating Thought content: Normal thought content present Insight: Limited insight present (Psych) Judgement: Limited judgement present (Psych) Results Reviewed Results Reviewed: Laboratory Tests 03/15/23 10:39 WBC 8.5 Hgb 15.7 Hct 45.8 Plt Count 268 Estimated GFR > 60 Total Bilirubin 0.3 AST 28 ALT 59 H Alkaline Phosphatase 67 C-Reactive Protein 0.18 Alpha Fetoprotein 2.3 TSH 1.86 TAYLOR Screen NEGATIVE Anti-Mitochondrial Ab NEGATIVE Anti-Smooth Muscle Ab <20 Tiss Transglutamin IgG <1.0 Tiss Transglutamin IgA <1.0 Hepatitis A IgM Ab Nonreactive Hep Bs Antigen Negative Hep Bs Antibody NONREACTIVE Hep B Core Total Ab Nonreactive Hepatitis C Ab (EIA) Nonreactive HIV 1&2 Ab/P24 Ag 4thGn Nonreactive The RAST PANEL SHOWED NO SIGNIFICANT FOOD ALLERGIES GI PANEL AND PANCREATIC ELASTASE NOT RETURNED. 03/15/23-[address]: VICKIE DOBSON DO ORDERED: Ua Clean Catch QUERIES: Source: Urine, Clean Catch Test Result Flag Reference Site Ur Color Yellow Ur Appear Clear PH 6.0 5.0-9.0 Ur Glu Negative Negative mg/dL Urine Blood Negative Negative Spec [place] Ur >= 1.030 H 1.005-1.025 Urine Protein Negative Neg-Trace mg/dL Urine Ketones Negative Negative mg/dL Ur Nitrite Negative Negative Ur Frandy Esterase Negative Negative HIDA SCAN 04/14/23 IMPRESSION: Visualization of the gallbladder is evidence of a patent cystic duct and strong evidence against the diagnosis of acute cholecystitis. The common bile duct is patent. Gallbladder emptying and ejection fraction are normal. Liver function appears normal. EGD/COLONOSCOPY EGD Findings:? * Esophagus:? Normal mucosa noted in the entire esophagus. The Z-line is at 36 cm. * Stomach:? Normal gastric mucosa. Retroflexion performed in the fundus. Random cold forceps gastric biopsies were taken to rule out H pylori. * Duodenum:? Normal duodenal mucosa to the extent visualised. Cold forceps biopsies were taken from duodenal bulb and 2nd portion of duodenum to rule out celiac sprue. * Colonoscopy Findings: Mucosa: Normal mucosa to cecum and terminal ileum. Cold forceps biopsies were taken from the right and left side of the colon to rule out microscopic colitis. Protruding lesions: * Medium internal hemorrhoids without stigmata of recent bleeding. Impression: 1. Normal esophagus 2. Normal gastric mucosa (biopsy) 3. Normal duodenum (biopsy) 4. Normal colon and terminal ileum mucosa (biopsy) 5. Internal hemorrhoids Recommendations:?? * Await pathology results. * Resume asymptomatic CRC screening at 47 y.o. BIOPSY Received: 04/04/23 Diagnosis A. Duodenum, biopsy: Duodenal mucosa within normal limits. B. Stomach, random, biopsy: Antral-type mucosa with mild chronic inactive inflammation; no Helicobacter organisms seen. C. Colon, right, biopsy: Colonic mucosa within normal limits; negative for microscopic colitis. D. Colon, left, biopsy: Colonic mucosa within normal limits; negative for microscopic colitis. Assessment & Plan Assessment & Plan (1) Acute diarrhea: Code(s): R19.7 - Diarrhea, unspecified Plan: UGI WITH SMALL BOWEL FOLLOW THROUGH Scheduled for 05/26 X-RAY OF LUMBAR THORACIC SPINE GI panel, pancreatic a last taste and stool calprotectin still have not been completed TODAY'S VISIT He is here with a male friend who is supportive.. His father just , and he has been losing weight, 11 lbs since 03/30. He recently saw some blood in his urine. He still has post prandial diarrhea. It is still watery. He denies any abdominal pain or nausea vomiting. HIDA scan does not show any problems with the gallbladder. He has had a very difficult past 8 weeks. His grandfather , and that his father was suddenly found to ceased at home, and his girlfriend's father also . With this he developed sudden onset about a week ago of upper respiratory symptoms and a cough with severe shortness of breath. He was seen by his doctor's office and they said they thought it was a pneumonia. However they did not do any blood work or get a chest x-ray. He had a course of amoxicillin which she has completed without any relief. He could not tolerate the prednisone they prescribed as it made him to angry and anxious. He does have an albuterol updraft machine at home he is relying on. He has also noted that he is extremely tachycardic using a home pulse ox his pulses never below 100 and frequently is as high as 130. This is quite concerning as well. I am going to get an EKG as well as an a.m. cortisol to explore the symptoms. I think I am going to get a chest x-ray, an a.m. cortisol level, and I encouraged him to continue his workup by getting a stool sample so we can make sure there is not infection of the stool draining his system. I also want to get an EKG to see if this any severe abnormality there particularly given what just occurred with his father. I am sending a cough medication and Mucinex along with a course of doxycycline to his pharmacy as this will well cover both sinusitis and pneumonia and has mild anti-inflammatory properties as well. His lungs are extremely tight knee even sounds like he might have a left middle lobe infiltrate. Depending on the results of the x-rays he may benefit from a referral to pulmonology and or an office worker. We all the the and that he has fatty liver, and so far there is no allergies microscopic colitis or signs of inflammatory bowel disease causing his diarrhea. However we still need to get a stool sample to if there is an infection or potential elevation of the fecal calprotectin. He says he will do this tomorrow. He will keep his May 02 appointment come back and see me in go over his results and see how he is progressing. (2) Family history of malignant neoplasm of colon in relative diagnosed when older than 50 years of age: Code(s): Z80.0 - Family history of malignant neoplasm of digestive organs (3) Back pain: Code(s): M54.9 - Dorsalgia, unspecified (4) Transaminitis: Comment: BASELINE LABS 03/15/23 10:39 Plt Count 268 Estimated GFR > 60 Total Bilirubin 0.3 AST 28 ALT 59 H Alkaline Phosphatase 67 C-Reactive Protein 0.18 Alpha Fetoprotein 2.3 TSH 1.86 TAYLOR Screen NEGATIVE Anti-Mitochondrial Ab NEGATIVE Anti-Smooth Muscle Ab <20 Tiss Transglutamin IgG <1.0 Tiss Transglutamin IgA <1.0 Hepatitis A IgM Ab Nonreactive Hep Bs Antigen Negative Hep Bs Antibody NONREACTIVE Hep B Core Total Ab Nonreactive Hepatitis C Ab (EIA) Nonreactive HIV 1&2 Ab/P24 Ag 4thGn Nonreactive CURRENT LABS CT ABDOMEN AND PELVIS 12/27/2022-ray S radiology LIVER GALLBLADDER AND BILIARY TREE: LIVER IS PROMINENT IN SIZE of overall decreased density with focal fatty sparing at the gallbladder fossa. No focal hepatic lesion or biliary duct dilation is present. The gallbladder is unremarkable with no evidence of radiopaque gallstone gallbladder wall thickening or obvious pericholecystic inflammatory changes ABDOMINAL WALL: Very small fat filled inguinal hernia left GI TRACT: Small hiatal hernia. Well distended and unremarkable stomach. Nonobstructive bowel pattern. Unremarkable terminal ileum and appendix. Proximal to mid transverse colonic wall thickening although under distended. Descending colon is decompressed. IMPRESSION Mild thickening proximal to the mid transverse colon questionable infectious versus inflammatory. No significant pericolonic stranding. Nonspecific mesenteric lymph nodes. Enlarged fatty liver. Code(s): R74.01 - Elevation of levels of liver transaminase levels (5) H/O colonoscopy: Code(s): Z98.890 - Other specified postprocedural states (6) History of esophagogastroduodenoscopy (EGD): Code(s): Z98.890 - Other specified postprocedural states (7) Hematuria: Code(s): R31.9 - Hematuria, unspecified (8) Cough: Code(s): R05.9 - Cough, unspecified (9) Weight loss: Code(s): R63.4 - Abnormal weight loss (10) Tachycardia: Code(s): R00.0 - Tachycardia, unspecified Orders: Orders UA CC w/rflx Micro + Cult Today R31.9 - Hematuria, unspecified XR chest 2V Today R05.9 - Cough, unspecified, R63.4 - Abnormal weight loss ECG 12 lead EKG Today R00.0 - Tachycardia, unspecified Cortisol, Free Today R05.9 - Cough, unspecified, R63.4 - Abnormal weight loss Calprotectin, Fecal Today R19.7 - Diarrhea, unspecified Medications: New doxycycline hyclate 100 mg PO BID 14 days 28 tabs 0RF R05.9 - Cough, unspecified benzonatate 200 mg PO BID PRN 60 caps 0RF cough R05.9 - Cough, unspecified guaifenesin ER (Mucinex) 600 mg PO BID 60 tabs 0RF R05.9 - Cough, unspecified Coding Level of Care Code Est Pt Level 4 (37913) Diagnoses Acute diarrhea R19.7 Family history of malignant neoplasm of colon in relative diagnosed when older than 50 years of age Z80.0 Back pain M54.9 Transaminitis R74.01 H/O colonoscopy Z98.890 History of esophagogastroduodenoscopy (EGD) Z98.890 Hematuria R31.9 Cough R05.9 Weight loss R63.4 Tachycardia R00.0
[2023-04-18 16:25] VITALS: BP 131/68; PULSE 95; BMI 36.0
== END 2023-04-18 17:30 | disposition home or self-care (01) ==
PROVIDERS: PCP Internal Medicine; Visit Provider Nurse Practitioner
DX: R19.7 Diarrhea, unspecified (principal); Z80.0 Family history of malignant neoplasm of digestive organs; M54.9 Dorsalgia, unspecified; R74.01 Elevation of levels of liver transaminase levels; Z98.890 Other specified postprocedural states; R31.9 Hematuria, unspecified; R05.9 Cough, unspecified; R63.4 Abnormal weight loss; R00.0 Tachycardia, unspecified
CPT/HCPCS: 99214

== ENCOUNTER → 2023-04-18 16:10 | Outpatient (BNVA) | payer OTHER, SELFPAY | PROVIDERS: PCP Internal Medicine; Visit Provider Nurse Practitioner ==

== ENCOUNTER 2024-12-04 08:04 | Outpatient (AMB) | payer OTHER, SELFPAY ==
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
[2024-12-04 08:07] VITALS: BP 122/80; PULSE 98; O2SAT 96; BMI 37.8
== END 2024-12-04 08:45 | disposition home or self-care (01) ==
PROVIDERS: PCP Internal Medicine; Visit Provider Physician Assistant Medical
DX: G47.33 Obstructive sleep apnea (adult) (pediatric) (principal); R06.83 Snoring; G47.19 Other hypersomnia; G47.10 Hypersomnia, unspecified; R06.81 Apnea, not elsewhere classified
CPT/HCPCS: 99214

== ENCOUNTER → 2024-12-04 08:04 | Outpatient (BNVA) | payer OTHER, SELFPAY | PROVIDERS: PCP Internal Medicine; Visit Provider Physician Assistant Medical ==

== ENCOUNTER → 2025-02-02 19:30 | Outpatient (REF) | payer OTHER, SELFPAY | LOC: HO.SL 19:30 | PROVIDERS: Visit Provider Physician Assistant Medical | DX: G47.33 Obstructive sleep apnea (adult) (pediatric) (principal); G47.19 Other hypersomnia; R06.83 Snoring | CPT/HCPCS: 95811 ==

== ENCOUNTER 2025-03-13 13:58 | Outpatient (AMB) | payer OTHER, SELFPAY ==
[2025-03-13 14:02] VITALS: BP 120/86; PULSE 109; O2SAT 94; BMI 38.9
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
== END 2025-03-13 14:49 | disposition home or self-care (01) ==
LOC: HO.HSMS 13:58
PROVIDERS: PCP Internal Medicine; Visit Provider Physician Assistant Medical
DX: G47.33 Obstructive sleep apnea (adult) (pediatric) (principal); R06.83 Snoring; G47.19 Other hypersomnia
CPT/HCPCS: 99214